=== PATIENT | male | born 1945 | race Caucasian/White ===

== ENCOUNTER 2020-05-07 14:48 | Outpatient (CLI) | payer MEDICARE, SELFPAY ==
--- NOTE | ~2020-05-07 | CT_ITS ---
EXAMINATION: CT abdomen pelvis wo con DATE: 05/07/2020 15:26 INDICATION: Abnormal weight loss TECHNIQUE: Computed tomography (CT) of the abdomen and pelvis was performed without intravenous contr ast. The dose-length product (DLP) was 616.63 mGy-cm. Automated exposure control and iterative recons truction technique were employed. COMPARISON: None FINDINGS: The lung bases are clear. The heart size is normal. There is mild bilateral gynecomastia. T he examination is limited by the absence of intravenous contrast. There is an ill-defined geographic area of low attenuation in the right hepatic lobe measuring approximately 9.5 x 7.5 cm. There appears to be intrahepatic biliary dilatation peripheral to the mass in the liver dome. Smaller masslike are as in the right hepatic lobe measure up to 4.7 cm. It is unclear whether these are contiguous with or separate from the larger mass. The spleen, pancreas, gallbladder, and adrenal glands are normal. The right kidney is unremarkable. There is a 13 mm stone in the left kidney. There is dilatation of the left renal pelvis with abrupt transition at the ureteropelvic junction. A large volume of colonic sto ol is present. There is severe lumbar spondylosis. No pathologically enlarged abdominal or pelvic lym ph nodes are identified. There is no free intraperitoneal gas or evidence of bowel obstruction. IMPRESSION: 1. Large ill-defined mass of the right hepatic lobe with possible multiple smaller masses and resulti ng intrahepatic biliary dilatation. Findings are concerning for primary liver malignancy such as chol angiocarcinoma. Evaluation is limited by the absence of intravenous contrast. Recommend further evalu ation by MRI without and with contrast or liver protocol CT. 2. Dilatation of the left renal pelvis with abrupt transition at the ureteropelvic junction which cou ld reflect UPJ obstruction. 3. Left nephrolithiasis. 4. Constipation. Reviewed, dictated and finalized at location A. VERER FOOD IMPRESSION: 1. Large ill-defined mass of the right hepatic lobe with possible multiple smal ler masses and resulting intrahepatic biliary dilatation. Findings are concerni ng for primary liver malignancy such as cholangiocarcinoma. Evaluation is limit ed by the absence of intravenous contrast. Recommend further evaluation by MRI without and with contrast or liver protocol CT. 2. Dilatation of the left renal pelvis with abrupt transition at the ureteropel casimiro junction which could reflect UPJ obstruction. 3. Left nephrolithiasis. 4. Constipation.
== END 2020-05-07 14:49 | disposition home or self-care (01) ==
PROVIDERS: PCP Internal Medicine; Visit Provider Internal Medicine
DX: R63.4 Abnormal weight loss (principal); N20.0 Calculus of kidney; K59.00 Constipation, unspecified
CPT/HCPCS: 74176

== ENCOUNTER 2020-05-10 13:00 | Outpatient (CLI) | payer MEDICARE, SELFPAY ==
[2020-05-10 13:21] LABS: Basophils Percent Auto 0.4 % (0.2-1.2); Eosinophils Absolute Auto 0.2 K/mm3 (0-0.3); Eosinophils Percent Auto 2.8 % (0-4.4); Hematocrit 45.9 % (42.0-52.0); Hemoglobin 15.3 g/dL (14.0-18.0); Immature Granulocyte Absolute 0.01 K/mm3 (0.00-0.031); Immature Granulocyte Percent A 0.1 % (0-0.5); Lymphocytes Absolute Auto 1.11 K/mm3 (0.9-3.2); Lymphocytes Percent Auto 15.8 % (18.3-44.2); Mean Corpuscular HGB Conc 33.3 g/dl (32-36); Mean Corpuscular Hemoglobin 32.8 pg (26-34); Mean Corpuscular Volume 98.5 fl (80-100); Mean Platelet Volume 8.9 fl (7.4-10.4); Monocytes Absolute Auto 0.9 K/mm3 (0.1-0.6); Monocytes Percent Auto 12.5 % (2.6-8.5); Neutrophils Absolute Auto 4.8 K/mm3 (1.3-6.7); Neutrophils Percent Auto 68.4 % (45.5-73.1); Platelet Count Result 203 k/mm3 (150-375); Red Blood Count 4.66 M/mm3 (4.6-6.20); Red Cell Distribution Width 12.4 % (11.5-14.5)
[2020-05-10 13:33] LABS: Alanine Aminotransferase 40 U/L (4-50); Albumin Level 4.1 g/dL (3.5-5.1); Alkaline Phosphatase 164 U/L (38-126); Anion Gap 5 mmol/L (8-16); Aspartate Amino Transferase 49 U/L (17-59); Bilirubin,Total 0.8 mg/dL (0.2-1.3); Blood Urea Nitrogen 30 mg/dL (9-20); Calcium 9.5 mg/dL (8.4-10.2); Carbon Dioxide 31 mmol/L (22-30); Chloride 103 mmol/L (98-107); Cholesterol 95 mg/dL (0-200); Estimated Glomerular Filt Rate > 60; Glucose 91 mg/dL (75-110); HDL Direct 32 mg/dL; Potassium 4.4 mmol/L (3.4-5.0); Sodium 139 mmol/L (137-145); Triglycerides 56 mg/dL (<150)
[2020-05-10 13:44] LABS: LDL Cholesterol Direct 48 mg/dL
[2020-05-10 14:31] LABS: Free T4 Free Thyroxine 1.32 ng/mL (0.78-2.19)
[2020-05-10 14:46] LABS: Folic Acid > 20.0 ng/mL (2.76->20)
== END 2020-05-10 13:01 | disposition home or self-care (01) ==
LOC: ANHLAB 13:01
PROVIDERS: PCP Internal Medicine; Visit Provider Internal Medicine
DX: E03.9 Hypothyroidism, unspecified (principal); E78.5 Hyperlipidemia, unspecified; I10 Essential (primary) hypertension; R53.83 Other fatigue
CPT/HCPCS: 36415; 80053; 80061; 82607; 82746; 84439; 84443; 85025

== ENCOUNTER 2020-05-12 12:42 | Outpatient (CLI) | payer MEDICARE, SELFPAY ==
--- NOTE | ~2020-05-12 | MR_ITS ---
EXAMINATION: MR abdomen wo/w con DATE: 05/12/2020 14:12 INDICATION: Liver mass. TECHNIQUE: Magnetic resonance imaging (MRI) of the abdomen was performed without and with 15 mL Multi Logan intravenous contrast. Sequences included coronal T2-weighted FS FSE, coronal and axial FS FIEST A, axial T2-weighted FSE, coronal LAVA-flex, axial STIR FSE, axial DWI, axial dual-echo T1-weighted F SPGR, and axial LAVA. Postcontrast sequences included coronal LAVA-flex and a time course of axial LA VA. COMPARISON: CT abdomen and pelvis 05/07/2020 FINDINGS: There is a 13.1 x 10.4 cm hypoenhancing mass centered in segment VIII of the liver. The liver, gallbl adder, and adrenal glands are normal. There are multiple cystic lesions in the pancreas measuring up to 9 mm. There is mild dilatation of the main pancreatic duct in the body and tail of the pancreas. R ight kidney is normal. There is a 14 mm hemorrhagic cyst in left kidney. There are cysts in left kidn ey including a 5.3 cm peripelvic cyst. There are no dilated loops of bowel. There are no pathological ly enlarged lymph nodes. There is no free intraperitoneal fluid. IMPRESSION: 1. 13.1 cm liver mass suspicious for malignancy such as metastatic disease, hepatocellular carcinoma, or cholangiocarcinoma. Ultrasound-guided core needle biopsy is recommended. 2. Small cystic lesions of the pancreas, most likely benign. Reviewed, dictated and finalized at location A. GER OF HOUSEKEEPING IMPRESSION: 1. 13.1 cm liver mass suspicious for malignancy such as metastatic disease, hep atocellular carcinoma, or cholangiocarcinoma. Ultrasound-guided core needle bio psy is recommended. 2. Small cystic lesions of the pancreas, most likely benign.
== END 2020-05-12 12:43 | disposition home or self-care (01) ==
PROVIDERS: PCP Internal Medicine; Visit Provider Internal Medicine
DX: R93.2 Abnormal findings on diagnostic imaging of liver and biliary tract (principal); R16.0 Hepatomegaly, not elsewhere classified; K86.2 Cyst of pancreas
CPT/HCPCS: 74183; A9577

== ENCOUNTER 2020-05-17 00:33 | Outpatient (CLI) | payer MEDICARE, SELFPAY ==
[2020-05-17 17:34] LABS: SARS-CoV-2 RNA PCR Negative
== END 2020-05-17 00:34 | disposition home or self-care (01) ==
LOC: ANHCOVIDDT 00:34
PROVIDERS: PCP Internal Medicine; Visit Provider Internal Medicine
DX: Z01.812 Encounter for preprocedural laboratory examination (principal); Z20.822 Contact with and (suspected) exposure to COVID-19
CPT/HCPCS: C9803; U0003; U0005

== ENCOUNTER 2020-05-20 07:48 | Outpatient (CLI) | payer MEDICARE, SELFPAY ==
[2020-05-14 12:00] VITALS: BMI 25.0
[2020-05-20] VITALS (13 sets, daily range): BP systolic 106–138; BP diastolic 59–73; PULSE 64–85; RESP 14–20; TEMP 36.6; O2SAT 96–99
--- NOTE | ~2020-05-20 | US_ITS ---
EXAMINATION: US biopsy liver DATE: 05/20/2020 10:02 INDICATION: Liver mass. TECHNIQUE: The procedure including the risks, benefits, and alternatives was discussed with the patie nt. Risks discussed included bleeding and infection. The patient understood the risks and agreed to p roceed. The skin overlying the liver was prepped and draped in usual sterile fashion. Anesthetic was administered with 1% lidocaine subcutaneously. An 18 gauge core biopsy needle was then used to obta in 3 core biopsy specimens under continuous sonographic guidance. The entry site was cleaned and dres sed. There were no immediate complications. FINDINGS: Ultrasound images demonstrate the needle in a 13.1 cm liver mass. IMPRESSION: 1. Ultrasound-guided core needle biopsy of a liver mass. Reviewed, dictated and finalized at location A. STATION ATTENDANT
[2020-05-20 08:54] LABS: INR 0.9; Prothrombin Time 12.9 Seconds (11.1-14.7)
[2020-05-20 11:01] LABS: Glucose Point of Care 85 (65-105)
== END 2020-05-20 14:00 | disposition home or self-care (01) ==
PROVIDERS: Radiology Diagnostic Radiology; PCP Internal Medicine; Visit Provider Internal Medicine
DX: C22.0 Liver cell carcinoma (principal); R16.0 Hepatomegaly, not elsewhere classified
CPT/HCPCS: 36415; 47000; 76942; 82948; 85610; 88307; 88312; 88342

== ENCOUNTER 2020-05-27 19:10 | Emergency (ER) | payer MEDICARE, SELFPAY ==
[2020-05-27] VITALS (16 sets, daily range): BP systolic 57–108; BP diastolic 38–73; PULSE 100–125; RESP 18–30; TEMP 37.1; O2SAT 96–100
--- NOTE | ~2020-05-27 | CT_ITS ---
EXAMINATION: CT abdomen pelvis w con DATE: 05/27/2020 20:53 INDICATION: Abdominal pain. TECHNIQUE: Computed tomography (CT) of the abdomen and pelvis was performed with 100 mL Omnipaque-350 intravenous contrast. Automated exposure control and iterative reconstruction technique were employe d. The dose-length product was 1233.87 mGy-cm. COMPARISON: 05/07/2020 FINDINGS: Minimal atelectasis in the bilateral lower lobes. Heart size is normal. Atherosclerotic coronary hafsa ry calcific lesion. No pericardial or pleural effusion. Small sliding-type hiatal hernia. Gallbladder , spleen, pancreas, bilateral adrenal glands and right kidney are normal. Again seen are couple nonob structing stones in middle and lower calyces of the left kidney. Unchanged dilation of the left renal pelvis with transition at the ureteropelvic junction without evident obstructing stone or mass. Blad kyle is normal. Prostatomegaly. Bowels are normal. No pathologically enlarged abdominal or pelvic lymp hadenopathy. There are bridging osteophytes at multiple levels in the spine, consistent with diffuse idiopathic skeletal hyperostosis (DISH). Interval increase in size of a now 11.6 x 10.8 cm mass in the right hepatic lobe consistent with biop sy-proven hepatocellular carcinoma. Moderate amount of complex high attenuation fluid along the liver and spleen the upper abdomen tracking caudally along the left and right paracolic gutters with addit ional collection the deep pelvis consistent with likely postbiopsy hemoperitoneum. No definitive acti ve extravasation identified. IMPRESSION: 1. Moderate amount of hemoperitoneum likely iatrogenic related to relatively recent liver biopsy with no definitive active extravasation. 2. Increase in size of 11.6 x 10.8 cm liver mass consistent with biopsy proven hepatocellular carcino ma. 3. Nonobstructing left nephrolithiasis with likely degenerative obstruction with chronic dilation of the left renal pelvis. 4. Small sliding-type hiatal hernia. 5. Prostatomegaly. Reviewed, dictated and finalized at location A. 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 Moderate amount of hemoperitoneum likely iatrogenic related to relatively re cent liver biopsy with no definitive active extravasation. 2. Increase in size of 11.6 x 10.8 cm liver mass consistent with biopsy proven hepatocellular carcinoma. 3. Nonobstructing left nephrolithiasis with likely degenerative obstruction wit h chronic dilation of the left renal pelvis. 4. Small sliding-type hiatal hernia. 5. Prostatomegaly.
--- NOTE | ~2020-05-27 | XR_ITS ---
EXAMINATION: XR chest 1V portable DATE: 05/27/2020 20:06 INDICATION: Hypotension and weakness. TECHNIQUE: frontal view of the chest was obtained. COMPARISON: Chest radiograph dated 02/05/2017 FINDINGS: The lungs remain clear with no focal airspace opacities, pulmonary edema, pleural effusion or pneumot horax. The cardiomediastinal silhouette is normal. Old healed left clavicle fracture deformity. IMPRESSION: 1. No acute cardiopulmonary disease. Reviewed, dictated and finalized at location A. DER WATCH PARTS
--- NOTE | 2020-05-27 19:28 | ECG_ITS ---
Measurements Intervals Ector Rate: 111 P: 79 MO: 148 QRS: -55 QRSD: 93 T: 87 QT: 335 QTc: 455 Interpretive Statements SINUS TACHYCARDIA LEFT AXIS DEVIATION RSR' IN V1 OR V2, CONSIDER RIGHT VENTRICULAR HYPERTROPHY OR RIGHT VCD POOR R WAVE PROGRESSION, ANTERIOR LEADS ST-T WAVE ABNORMALITY IN HIGH LATERAL LEADS- CONSIDER ISCHEMIA ABNORMAL ECG Electronically Signed On 05-28-2020 6:50:09 PIE BAKER by Mauro Gomez D.O.
[2020-05-27] MEDS: SODIUM CHLORIDE 0.9% IV 1,000 ML 999 ML IV CONT ×2 (19:39→20:58)
--- NOTE | 2020-05-27 19:42 | PC.NURSE ---
Pt states he is unable to give urine sample at this time. Pt refusing straight cath
[2020-05-27 19:43] LABS: Basophils Absolute Auto 0.1 K/mm3 (0.0-0.1); Basophils Percent Auto 0.6 % (0.2-1.2); Eosinophils Absolute Auto 0.1 K/mm3 (0-0.3); Eosinophils Percent Auto 1.2 % (0-4.4); Hematocrit 37.2 % (42.0-52.0); Hemoglobin 11.7 g/dL (14.0-18.0); Immature Granulocyte Absolute 0.11 K/mm3 (0.00-0.031); Immature Granulocyte Percent A 0.9 % (0-0.5); Lymphocytes Absolute Auto 2.99 K/mm3 (0.9-3.2); Lymphocytes Percent Auto 25.4 % (18.3-44.2); Mean Corpuscular HGB Conc 31.5 g/dl (32-36); Mean Corpuscular Hemoglobin 32.5 pg (26-34); Mean Corpuscular Volume 103.3 fl (80-100); Monocytes Absolute Auto 1.1 K/mm3 (0.1-0.6); Monocytes Percent Auto 9.3 % (2.6-8.5); Neutrophils Absolute Auto 7.4 K/mm3 (1.3-6.7); Neutrophils Percent Auto 62.6 % (45.5-73.1); Platelet Count Result 332 k/mm3 (150-375); Red Cell Distribution Width 12.5 % (11.5-14.5); White Blood Count 11.8 K/mm3 (4.5-10.0)
[2020-05-27 19:55] LABS: Alanine Aminotransferase 35 U/L (4-50); Albumin Level 3.1 g/dL (3.5-5.1); Alkaline Phosphatase 146 U/L (38-126); Anion Gap 16 mmol/L (8-16); Aspartate Amino Transferase 64 U/L (17-59); Bilirubin,Total 0.8 mg/dL (0.2-1.3); Blood Urea Nitrogen 24 mg/dL (9-20); Calcium 8.5 mg/dL (8.4-10.2); Carbon Dioxide 14 mmol/L (22-30); Chloride 109 mmol/L (98-107); Estimated CRCL calculation 53 ml/min; Estimated Glomerular Filt Rate > 60; Glucose 176 mg/dL (75-110); Potassium 3.6 mmol/L (3.4-5.0); Sodium 139 mmol/L (137-145)
[2020-05-27 20:56] LABS: Lactic Acid Reflex 7.5 mmol/L (0.7-2.1)
--- NOTE | 2020-05-27 22:12 | ED.GENADULT ---
HPI - General Adult General Chief complaint: Weakness Stated complaint: Vomiting, Syncopal Time Seen by Provider: 05/27/20 19:11 Source: patient and family Mode of arrival: EMS History of Present Illness HPI narrative: 75-year-old with a history of hypertension, liver mass s/p ultrasound-guided liver biopsy done on 05/20/2020 here with complaints of nausea vomiting sudden onset of marked weakness and near syncopal episode happened just prior to coming to the ER. Patient states that he was not feeling well all day today. He denied any chest pain, shortness of breath or fever or chills. Denies any Covid exposure. Complaining of lower abdominal pain. Denies any blood in the stool or black-colored stool. Patient states he was doing fine after the biopsy had no significant abdominal pain. Related Data Home Medications Medication Instructions Recorded Confirmed aspirin 81 mg tablet,delayed 81 mg PO DAILY 07/24/19 05/14/20 release empagliflozin 25 mg tablet 25 mg PO QAM 07/24/19 05/14/20 epinephrine 0.3 mg/0.3 mL 0.3 mg IM ONCE PRN 07/24/19 05/14/20 injection, auto-injector metformin 500 mg tablet,extended 1,000 mg PO BID tablet 07/24/19 05/14/20 release 24 hr glipizide 5 mg tablet 5 mg PO DAILY 10/27/19 05/14/20 ibuprofen 800 mg PO BID PRN 05/14/20 05/14/20 tamsulosin mg PO 05/27/20 Allergies Allergy/AdvReac Type Severity Reaction Status Date / Time venom-honey bee Allergy Severe Anaphylaxis Verified 05/27/20 19:40 Review of Systems Review of Systems: All systems reviewed & are unremarkable except as noted in HPI and below Constitutional: Constitutional: Reports no additional constitutional complaints Eyes: Eyes: Reports no additional eye complaints ENT: Reports system reviewed and no additional complaints, except as documented Cardiovascular: Cardiovascular: Reports no additional cardiovascular complaints Respiratory: Respiratory: Reports no additional respiratory complaints Gastrointestinal: Gastrointestinal: Reports as per HPI, Reports nausea and Reports vomiting Musculoskeletal: Musculoskeletal: Reports no additional musculoskeletal complaints Neurologic: Reports system reviewed and no additional complaints, except as documented Psychiatric: Psychiatric: Reports no additional psychiatric complaints [facility] Family History Family History Father Family history of malignant neoplasm Mother Patient's mother is Social History Social History Smoking status: Never smoker Second hand tobacco smoke exposure: No Alcohol intake: current Drinks per week: 2 Substance use: never Gender identity (if verbalized by the patient): Male Exam Narrative: Exam Narrative: GENERAL: Well-appearing,Pale, HEAD: Normocephalic, atraumatic. EYES: PERRLA and EOMI.. NECK: Supple. CHEST: Clear to auscultation. No respiratory distress. HEART: Tachycardiac ABDOMEN: Soft, tender in the lower abdomen EXTREMITIES: Normal range of motion. No edema. SKIN: Warm, dry, Pal[place] rash. NEURO: No focal deficits. Alert and oriented x3. PSYCH: Normal mood and affect. Course Course Emergency Course: After initial 2 L of IV fluids his pressure has picked up to 105/55 meanwhile I did obtain a CT of his abdomen which shows large intraperitoneal bleed. I discussed with Dr. Marc who recommended transfer to patient to tertiary care for further intervention. Patient at present was not complaining of any nausea or vomiting discussed labs and CT findings with the patient and the family. I discussed with Dr. Chamberlain surgeon on-call at 1 she was at Hospital who accepted the patient in transfer. Vital Signs Vital signs: Vital Signs Pulse Rate 112 H 05/27/20 19:22 Respiratory Rate 25 H 05/27/20 19:22 Blood Pressure 57/38 L 05/27/20 19:22 Pulse Oximetry 100 05/27/20 19:22 Temperature 37
[2020-05-27 23:36] LABS: Reflex Lactic Acid Yes or No Add Lactic
== END 2020-05-27 22:38 | disposition short-term general hospital (02) ==
PROVIDERS: Emergency Provider Family Medicine; PCP Internal Medicine
DX: K66.1 Hemoperitoneum (principal); I95.9 Hypotension, unspecified; I10 Essential (primary) hypertension; Z79.82 Long term (current) use of aspirin; Z79.84 Long term (current) use of oral hypoglycemic drugs; R16.0 Hepatomegaly, not elsewhere classified; N20.0 Calculus of kidney; N40.0 Benign prostatic hyperplasia without lower urinary tract symptoms; K44.9 Diaphragmatic hernia without obstruction or gangrene; R00.0 Tachycardia, unspecified; R94.31 Abnormal electrocardiogram [ECG] [EKG]
CPT/HCPCS: 36415; 71045; 74177; 80053; 83605; 85025; 86850; 86900; 86901; 86923; 87040; 93005; 96360; 96361; 99285; J7030; Q9967

== ENCOUNTER 2020-06-24 15:45 | Emergency (ER) | payer MEDICARE, SELFPAY ==
--- NOTE | ~2020-06-24 | US_ITS ---
EXAMINATION:US venous doppler LE BI INDICATION:Leg edema TECHNIQUE: Multiple grayscale, color flow and Doppler images of the right and left lower extremity de ep venous systems were obtained and reviewed. COMPARISON:No prior studies for comparison. FINDINGS: There is thrombosis of the right femoral vein. The remainder of the lower extremity veins a re patent bilaterally. Normal compressibility and augmentation in the left lower extremity veins. IMPRESSION: 1: Deep venous thrombosis of the right femoral vein. Reviewed, dictated and finalized at location A. 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
[2020-06-24 15:50] VITALS: BP 152/73; PULSE 100; RESP 15; TEMP 36.9; O2SAT 100
[2020-06-24 16:26] LABS: Basophils Percent Auto 0.3 % (0.2-1.2); Eosinophils Percent Auto 0.4 % (0-4.4); Hematocrit 38.4 % (42.0-52.0); Hemoglobin 12.2 g/dL (14.0-18.0); Immature Granulocyte Absolute 0.03 K/mm3 (0.00-0.031); Immature Granulocyte Percent A 0.4 % (0-0.5); Lymphocytes Absolute Auto 0.91 K/mm3 (0.9-3.2); Lymphocytes Percent Auto 11.8 % (18.3-44.2); Mean Corpuscular HGB Conc 31.8 g/dl (32-36); Mean Corpuscular Hemoglobin 32.3 pg (26-34); Mean Corpuscular Volume 101.6 fl (80-100); Mean Platelet Volume 8.9 fl (7.4-10.4); Monocytes Absolute Auto 0.9 K/mm3 (0.1-0.6); Neutrophils Absolute Auto 5.8 K/mm3 (1.3-6.7); Neutrophils Percent Auto 75.1 % (45.5-73.1); Platelet Count Result 369 k/mm3 (150-375); Red Blood Count 3.78 M/mm3 (4.6-6.20); Red Cell Distribution Width 16.6 % (11.5-14.5); White Blood Count 7.7 K/mm3 (4.5-10.0)
[2020-06-24 16:36] LABS: Partial Thromboplastin Time 22.4 SECONDS (22.3-36.8); Prothrombin Time 13.8 Seconds (11.1-14.7)
[2020-06-24 16:41] LABS: Lactic Acid Reflex 1.8 mmol/L (0.7-2.1)
[2020-06-24 16:43] LABS: Anion Gap 1 mmol/L (8-16); Blood Urea Nitrogen 24 mg/dL (9-20); Calcium 7.9 mg/dL (8.4-10.2); Carbon Dioxide 32 mmol/L (22-30); Chloride 101 mmol/L (98-107); Estimated CRCL calculation 93 ml/min; Estimated Glomerular Filt Rate > 60; Glucose 242 mg/dL (75-110); Potassium 4.6 mmol/L (3.4-5.0); Sodium 134 mmol/L (137-145)
--- NOTE | 2020-06-24 18:21 | ED.WOUNDLAC ---
HPI - Wound/Laceration General Chief Complaint: Wound/Laceration Stated Complaint: left foot infection Time Seen by Provider: 06/24/20 15:50 History of Present Illness HPI narrative: Patient is a 75-year-old male who was sent to the ER by his home health provider today for concerns of infection to left foot. Patient has a large blister that ruptured and is feeling the left foot. It developed 2 weeks ago while he was hospitalized for a liver cancer ablation procedure. There was some weeping and new redness that developed today which is why sent in. The redness is located around midfoot and does not streak up his leg. Patient denies fevers or chills or sweats. There is also concerned that patient may have developed a DVT in that leg given significant edema. Patient is without any chest pain or shortness of breath. Related Data Home Medications Medication Instructions Recorded Confirmed aspirin 81 mg tablet,delayed 81 mg PO DAILY 07/24/19 06/23/20 release epinephrine 0.3 mg/0.3 mL 0.3 mg IM ONCE PRN 07/24/19 06/23/20 injection, auto-injector metformin 500 mg tablet,extended 1,000 mg PO BID tablet 07/24/19 06/23/20 release 24 hr glipizide 5 mg tablet 5 mg PO DAILY 10/27/19 06/23/20 tamsulosin mg PO 05/27/20 06/23/20 empagliflozin [Jardiance] mg 06/24/20 furosemide 06/24/20 spironolactone 06/24/20 Allergies Allergy/AdvReac Type Severity Reaction Status Date / Time venom-honey bee Allergy Severe Anaphylaxis Verified 06/24/20 16:07 Review of Systems Review of Systems: All systems reviewed & are unremarkable except as noted in HPI and below Constitutional: Constitutional: Denies chills, Denies fever(s) and Denies weakness ENT: Denies nasal congestion and Denies sore throat Cardiovascular: Cardiovascular: Denies chest pain and Denies radiating jaw, neck or arm pain Respiratory: Respiratory: Denies cough and Denies dyspnea Gastrointestinal: Gastrointestinal: Denies abdominal pain, Denies diarrhea, Denies nausea and Denies vomiting Integumentary/Breasts: Skin/Breast: Reports erythema, Denies rash and Reports skin ulcer PMFSH Past Medical History Medical History (Updated 06/24/20 @ 18:29 by Andi López MD) Essential (primary) hypertension HCC (hepatocellular carcinoma) Hyperlipidemia Hypothyroidism Type 2 diabetes mellitus without complications Surgical History Surgical History (Updated 06/24/20 @ 18:25 by Andi López MD) H/O nasal septoplasty H/O vein stripping Family History Family History Father Family history of malignant neoplasm Mother Patient's mother is Social History Social History Smoking status: Never smoker Second hand tobacco smoke exposure: No Alcohol intake: current Drinks per week: 2 Substance use: never Gender identity (if verbalized by the patient): Male Exam Narrative: Exam Narrative: GENERAL: Well-appearing, well-nourished, and in no acute distress. HEAD: Normocephalic, atraumatic. CHEST: Clear to auscultation. No respiratory distress. HEART: Regular rate and rhythm. Normal peripheral pulses. ABDOMEN: Soft, nontender, nondistended. EXTREMITIES: Normal range of motion. 3+ edema. SKIN: Warm, dry, no rash. Developing cellulitis over the dorsum of the left foot where there is sloughing of a old blister. No purulent drainage. There is some granulation tissue related to healing. NEURO: Alert and oriented x3. PSYCH: Normal mood and affect. Course Course Emergency Course: Patient and family informed of results. Discussed case with Dr. Fowler. Patient will be started on Xarelto for home. Patient also be started on clindamycin for his cellulitis. Vital Signs Vital signs: Vital Signs Temperature 98.4 F 06/24/20 15:50 Pulse Rate 100 06/24/20 15:50 Respiratory Rate 15 06/24/20 15:50 Blood Pressur
[2020-06-24 19:00] VITALS: BP 150/70; PULSE 96; RESP 16; O2SAT 100
== END 2020-06-24 19:00 | disposition home or self-care (01) ==
PROVIDERS: Emergency Provider Emergency Medicine; PCP Internal Medicine
DX: L03.115 Cellulitis of right lower limb (principal); I82.411 Acute embolism and thrombosis of right femoral vein; C22.0 Liver cell carcinoma; I10 Essential (primary) hypertension; E78.5 Hyperlipidemia, unspecified; E03.9 Hypothyroidism, unspecified; E11.9 Type 2 diabetes mellitus without complications; Z79.82 Long term (current) use of aspirin; Z79.84 Long term (current) use of oral hypoglycemic drugs; Z98.890 Other specified postprocedural states
CPT/HCPCS: 36415; 80048; 83605; 85025; 85610; 85730; 93970; 99284

== ENCOUNTER 2020-06-28 09:03 | Outpatient (CLI) | payer MEDICARE, SELFPAY ==
--- NOTE | ~2020-06-28 | XR_ITS ---
EXAMINATION: XR barium swallow modified EXAM DATE: 06/28/2020 09:32 INDICATION: R13.10 - Dysphagia, unspecified. TECHNIQUE: Modified barium esophagram was performed by myself to administered fluoroscopy, in conjun ction with speech pathologist who administered barium in varying consistencies as per speech patholog ist documentation. This was recorded on tape. The DAP for this procedure was 1.2 Gycm2. FINDINGS: Oral stage: Adequate function. Pharyngeal phase: Moderate piriform and small vallecula residual. Laryngeal penetration: Trace, ejected. Aspiration: None. Laryngeal sensitivity: Present. IMPRESSION: Patient tolerated oral feedings in the upright position. Please refer to speech patholo gist findings and specific feeding recommendations. Reviewed, dictated and finalized at location A. IMPRESSION: Patient tolerated oral feedings in the upright position. Please r efer to speech pathologist findings and specific feeding recommendations.
--- NOTE | 2020-06-29 08:27 | STOPEVAL ---
MODIFIED BARIUM SWALLOW EVALUATION: Thank you for referring Andreas Anderson to [facility].? Attending Provider: Homer Black PA-C/Dr Fowler: [phone] Outpatient Past Medical History Past Medical History Source of Past Medical History Patient,Family/Significant Other Neurological History Hx Neurological Disorders No Significant History Cardiovascular History Hx Hypercholesterolemia Yes Hx Hypertension Yes Respiratory History Hx Respiratory Disorders No Significant History Gastrointestinal History Hx Other Gastrointestinal Disorders Yes: LIVER MASS Genitourinary History Hx Benign Prostatic Hyperplasia Yes Hx Other Genitourinary Disorders Yes: reports kidney/liver burst--went to inpatient rehab Musculoskeletal History Hx Arthritis Yes Hx Back Pain Yes Hematological History Hx Blood Transfusion Reaction Yes Endocrine History Hx Diabetes Yes HEENT History Hx Deviated Septum Yes: SURGERY Hx Other HEENT Disorders Yes: GLASSES, CAHUILLA-BILATERAL HEARING AIDS Integumentary History Hx Skin Disorders No Significant History Reproductive History Hx Reproductive Disorders No Significant History Psychosocial History Hx Psychiatric Disorders No Significant History Pain History History of Any Previous or Ongoing No Significant History Instance of Pain Anesthesia History Hx Anesthesia Reactions No Significant History Evaluation Information Problem Diagnosis dysphagia Additional Evaluation Detail pt stated he was recently admitted to [facility] then [facility]. He reported that he reported his swallow difficulty to them but it was not evaluated addressed . Prior Level of Function Prior Swallow Level Prior Intake Method Oral Prior Diet Pureed (Level 4 Diet) Prior Liquid Consistency Thin (Level 0 Diet) Pain Assessment Timing of Pain Assessment Timing of Pain Assessment Assessment Self Report Self Report Pain Level 0 Pain Score Pain Score 0: Self Report Modified Barium Swallow Evaluation Recent Swallowing History Reports Dysphagia Yes: I can't get back to my voice & I have to eat blended food History of Dysphagia No Duration of Dysphagia 2 months Reported Difficult Consistencies Solids Intake Method Prior to Swallow Oral Evaluation Diet Prior to Swallow Evaluation Pureed, Level 4 Liquid Consistency Prior to Swallow Thin (0) Evaluation Consistency Thin Uncontrolled 2 Other Amount
== END 2020-06-28 09:04 | disposition home or self-care (01) ==
LOC: ANHIMG 09:07
PROVIDERS: PCP Internal Medicine; Visit Provider Physician Assistant
DX: R13.10 Dysphagia, unspecified (principal)
CPT/HCPCS: 92611

== ENCOUNTER → 2021-01-31 00:16 | Outpatient (CLI) | payer MEDICARE, SELFPAY ==
[2021-01-31 18:52] LABS: SARS-CoV-2 RNA PCR Negative
== END ==
PROVIDERS: PCP Internal Medicine; Visit Provider Internal Medicine
DX: Z01.818 Encounter for other preprocedural examination (principal); Z20.822 Contact with and (suspected) exposure to COVID-19
CPT/HCPCS: C9803; U0003; U0005

== ENCOUNTER 2021-08-26 09:56 | Outpatient (CLI) | payer MEDICARE, SELFPAY ==
--- NOTE | ~2021-08-26 | CT_ITS ---
EXAMINATION: CT chest abdomen pelvis w con DATE: 08/26/2021 10:36 INDICATION: Hepatocellular carcinoma TECHNIQUE: Transaxial computed tomographic images of the chest, abdomen, and pelvis were obtained aft er the administration of 100 cc of Omnipaque 300 intravenous contrast. The dose-length product (DLP) was 790.34 mGy-cm. Automated exposure control and iterative reconstruction technique were employed. COMPARISON: 05/27/2020 FINDINGS: CHEST CT: There has been interval development of innumerable lung nodules scattered throughout all lobes measur ing up to 1.8 cm. There is no pneumothorax. There is a 6.5 x 3.2 cm mass of confluent aorticopulmonar y window and precarinal lymph nodes. There is also subcarinal lymphadenopathy. There is a small right pleural effusion. There is mild thoracic spondylosis. The right superior pulmonary vein is mildly e xpanded and demonstrate a filling defect. ABDOMEN/PELVIS CT: There is an 11.0 x 7.8 cm mass of the right hepatic lobe which has developed interval partial calcifi cation. The mass appears to slightly decreased in size and exerts less mass effect on the intrahepati c inferior vena cava than on the comparison. There is a small filling defect in the intrahepatic infe rior vena cava which appears to be contiguous with a liver mass. There is a new 4.7 x 3.3 x 6.4 cm ma ss in liver segment V. The spleen and adrenal glands are normal. There is atrophy of the pancreas wit h enlargement of the pancreatic duct in the body and tail, likely chronic pancreatitis. The gallbladd er is contracted and contains stones. There are stones in the lower pole of the left kidney which danna sure up to 12 mm. There is bilateral hydroureteronephrosis with wall thickening of the urinary bladde r and diffuse urothelial enhancement of the bladder, ureters, and renal pelves. There is no free intr aperitoneal gas or evidence of bowel obstruction. There is severe lumbar spondylosis. IMPRESSION: 1. Interval development of innumerable lung nodules, consistent with metastatic disease. 2. Mediastinal lymphadenopathy, also consistent with metastatic disease. 3. New mass of the right hepatic lobe, consistent with hepatocellular carcinoma. 4. Partial calcification and slight interval decrease in size of the mass in liver segment VIII, cons istent with treatment response. 5. Small intraluminal filling defect in the intrahepatic inferior vena cava which appears to be bernadette guous with the segment VIII mass, concerning for tumor invasion of the inferior vena cava. 6. Expansion an intraluminal filling defect of the right superior pulmonary vein consistent with thro mbus, tumor versus bland. 7. Wall thickening of the urinary bladder and urothelial enhancement throughout the urinary tract, li chasity urinary tract infection. 8. Nonobstructing left nephrolithiasis. 9. Small right pleural effusion. These findings were discussed with Dr. Tacos Castellanos MD at 1605 hours on 08/26/2021. Reviewed, dictated and finalized at location A. IMPRESSION: 1. Interval development of innumerable lung nodules, consistent with metastatic disease. 2. Mediastinal lymphadenopathy, also consistent with metastatic disease. 3. New mass of the right hepatic lobe, consistent with hepatocellular carcinoma . 4. Partial calcification and slight interval decrease in size of the mass in li jaleel segment VIII, consistent with treatment response. 5. Small intraluminal filling defect in the intrahepatic inferior vena cava whi ch appears to be contiguous with the segment VIII mass, concerning for tumor in vasion of the inferior vena cava. 6. Expansion an intraluminal filling defect of the right superior pulmonary vei n consistent with thrombus, tumor versus bland. 7. Wall thickening of the urinary
[2021-08-26 10:29] LABS: Estimated Glomerular Filt Rate 59
== END 2021-08-26 09:57 | disposition home or self-care (01) ==
PROVIDERS: PCP Internal Medicine; Visit Provider Internal Medicine Hematology & Oncology
DX: C22.0 Liver cell carcinoma (principal); J90 Pleural effusion, not elsewhere classified; N20.0 Calculus of kidney
CPT/HCPCS: 71260; 74177; Q9967